=== PATIENT | female | born 1945 | race African-American/Black ===

== ENCOUNTER → 2019-07-01 | Outpatient (CLI) | payer MEDICARE ==
--- NOTE | 2019-07-09 14:19 | RAD ---
DATE: July 01, 2019 EXAM: MAMMO PATEL SCREENING BILATERAL HISTORY: Screening study. COMPARISON: [facility] June 17, 2018. This study was interpreted with the benefit of Computerized Aided Detection (CAD). 2-D digital mammographic views of both breasts were performed in the CC and MLO projections. 3-D digital tomosynthesis images of both breasts were performed in the CC and MLO projections and reviewed on a computer workstation. FINDINGS: Breast Density: HETERO The breast parenchyma is heterogenously dense, which could reduce sensitivity of mammography. Breast parenchyma level C.. There is an enlarging nodule within the upper outer quadrant of the right breast nodule measuring 7 mm. This is best seen on patel CC image 14 and MLO patel image 15. It is located 4 cm from the nipple. Left breast nodularity is stable. Biopsy clip is seen within the medial aspect left breast at nipple level. No spiculated lesion or architectural distortion or clustering of pleomorphic microcalcifications are evident on either side otherwise. IMPRESSION: Enlarging nodule right breast. Recommend right breast sonography. BI-RADS CATEGORY: 0 INCOMPLETE: NEEDS ADDITIONAL IMAGING EVALUATION AND/OR PRIOR MAMMOGRAMS FOR COMPARISON. RECOMMENDED FOLLOW-UP: ADD ADDITIONAL IMAGING PQRS compliance statement: Patient information was entered into a reminder system with a target due date now for the next ultrasound. Mammography is a sensitive method for finding small breast cancers, but it does not detect them all and is not a substitute for careful clinical examination. A negative mammogram does not negate a clinically suspicious finding and should not result in delay in biopsying a clinically suspicious abnormality. "Our facility is accredited by the [employer] Mammography [employer]." The patient's breast density may affect the ability of mammography to detect breast cancer. There are 4 categories of breast density, A, B, C and D. Breast density A means that most of the breast tissue is replaced with adipose tissue and therefore is not dense. Breast density B means that the breast tissue is mildly dense and scattered. Breast density C means that the breast tissue is heterogeneously dense. Breast density D means that the breast tissue is very dense. Breast densities especially C and D may decrease the sensitivity of mammography to detect breast cancer. Therefore, the patient may benefit from 3-D breast mammography (3D breast tomography) as a part of their screening mammogram. Insurance may or may not pay for this additional imaging. The patient's breast density based on today's mammogram is category C.
== END | disposition home or self-care (01) ==
LOC: MAMMO 08:38
PROVIDERS: ATTEND Physician Assistant
DX: Z12.31 Encounter for screening mammogram for malignant neoplasm of breast (principal); N63.11 Unspecified lump in the right breast, upper outer quadrant
CPT/HCPCS: 77063; 77067

== ENCOUNTER → 2019-07-22 | Outpatient (CLI) | payer MEDICARE ==
[~2019-07-22] MED LIST: ASPI-630 PO; ATEN50TA PO; HYDR50TA6 PO; SPIR25TA5 PO
--- NOTE | 2019-07-22 13:29 | RAD ---
Examination: BREAST RIGHT History: Abnormal mammogram Comparison/Correlation: Screening mammogram 05/01/2019 Findings: Right upper-outer breast ultrasound was performed. Septated cystic structure measuring 0.7 cm x 0.6 cm x 0.4 centimeter. No flow evident within it. This appears to correspond with the mammographic finding. Impression: BI-RADS Category 3-probably benign. Six-month follow-up right unilateral mammogram and six-month follow-up ultrasound exam recommended to assess stability. Electronically signed by: Dylon Thapa MD (07/22/2019 1:27 PM) [id number]
== END | disposition home or self-care (01) ==
LOC: US 12:46
PROVIDERS: ATTEND Family Medicine
DX: N60.11 Diffuse cystic mastopathy of right breast (principal)
CPT/HCPCS: 76641

== ENCOUNTER → 2019-08-05 | Day surgery (SDC) | payer MEDICARE ==
[~2019-08-05] MED LIST changes: +IV RINGERS SOLUTION,LACTATED 1,000 ML IV SCH; +PROPOFOL 20 ML IV ONE
[2019-08-05 13:58] VITALS: BP 132/64
== END | disposition home or self-care (01) ==
LOC: SURG 11:57
PROVIDERS: ATTEND Internal Medicine Gastroenterology
DX: Z12.11 Encounter for screening for malignant neoplasm of colon (principal); K63.89 Other specified diseases of intestine; M19.90 Unspecified osteoarthritis, unspecified site; N18.3 Chronic kidney disease, stage 3 (moderate); I12.9 Hypertensive chronic kidney disease with stage 1 through stage 4 chronic kidney disease, or unspecified chronic kidney disease; Z86.010 Personal history of colon polyps; Z90.710 Acquired absence of both cervix and uterus; Z88.6 Allergy status to analgesic agent; Z88.1 Allergy status to other antibiotic agents; Z79.82 Long term (current) use of aspirin; Z79.899 Other long term (current) drug therapy; Z88.5 Allergy status to narcotic agent; Z87.39 Personal history of other diseases of the musculoskeletal system and connective tissue; Z98.890 Other specified postprocedural states
CPT/HCPCS: G0105; J2704; 45378

== ENCOUNTER → 2020-07-27 | Outpatient (CLI) | payer MEDICARE ==
[2019-08-05 13:58] VITALS: BP 132/64
[~2020-07-27] MED LIST changes: -HYDR50TA6 PO; +HYDR50TA9 PO; -IV RINGERS SOLUTION,LACTATED 1,000 ML IV SCH; -PROPOFOL 20 ML IV ONE
--- NOTE | 2020-07-27 14:56 | RAD ---
EXAM: Bilateral digital diagnostic mammogram with tomosynthesis; right breast sonogram. HISTORY: 75-year-old female presents for follow-up evaluation of a suspected benign cystic lesion wit hin the right breast demonstrated on a sonogram performed 07/22/2019. The patient did not return at t he 6 month recommended follow up interval and is not due for bilateral mammography. TECHNIQUE: Full-field digital craniocaudal and mediolateral oblique 2D and 3D tomosynthesis images of both breasts are obtained for evaluation. Computer aided detection was applied. Sonographic imaging of the right breast targeted to the site of prior findings was performed COMPARISON: 07/22/2019 and 07/01/2019 BREAST PARENCHYMAL DENSITY: Level B - Scattered fibroglandular densities. FINDINGS: There is no new suspicious mass, microcalcification or region of architectural distortion. There are multiple scattered benign-appearing areas of nodularity throughout both breasts. There are stable areas of asymmetry when allowing for differences in patient positioning. There are few benign calcifications. Sonographic imaging of the right breast demonstrates a stable 7 mm lobulated cystic lesion with inter nal echoes and posterior through transmission at the 9:30 position 4 cm from the nipple, the appearan ce of which favors a cluster of cysts. This demonstrates no suspicious solid lesion component. There are benign axillary lymph nodes. IMPRESSION: 1. Stable benign-appearing cystic lesion measuring 7 mm at the 9:30 position of the right breast 4 cm from the nipple, there is which favors a cluster of cysts. 2. No new suspicious mammographic or sonographic finding. 3. BI-RADS Category 2: Benign finding(s). RECOMMENDATION: Annual mammography is recommended. If your mammogram demonstrates that you have dense breast tissue, which could hide abnormalities, and if you have other risk factors for breast cancer that have been identified, you might benefit from s upplemental screening tests that may be suggested by your ordering physician. Dense breast tissue, i n and of itself, is a relatively common condition. This information is not provided to cause undue c oncern, but rather to raise your awareness and to promote discussion with your physician regarding th e presence of other risk factors, in addition to dense breast tissue. A report of your mammography re sults will be sent to you and your physician. You should contact your physician if you have any ques tions or concerns regarding this report. Mammography is a sensitive method for finding small breast cancers, but it does not detect them all a nd is not a substitute for careful clinical examination. A negative mammogram does not negate a clin ically suspicious finding and should not result in delay in biopsying a clinically suspicious abnorma lity. PQRS compliance statement - Patient information was entered into a reminder system with a target due date for the next mammogram. "Our facility is accredited by the [employer] Mammography [employer]." Electronically signed by: Jeanine Winter MD (07/27/2020 2:54 PM) [id number]
== END ==
LOC: MAMMO 13:49
PROVIDERS: ATTEND Family Medicine
DX: R92.1 Mammographic calcification found on diagnostic imaging of breast (principal); N60.01 Solitary cyst of right breast; N63.10 Unspecified lump in the right breast, unspecified quadrant
CPT/HCPCS: 76641; 77066; G0279; 77062

== ENCOUNTER → 2021-05-30 | Outpatient (CLI) | payer MEDICARE ==
[2019-08-05 13:58] VITALS: BP 132/64
[2021-05-30 10:24] LABS: BASO % 1 % (0-3); EOS # 0.1 x10^3/uL (0.0-0.7); EOS % 2 % (0-3); HEMATOCRIT 38.9 % (36.0-47.0); HEMOGLOBIN 13.1 g/dL (12.0-15.5); LYMPH # 1.7 x10^3/uL (1.0-4.8); LYMPH % 34 % (24-48); MEAN CORPUSCULAR HEMOGLOBIN 33 pg (25-35); MEAN CORPUSCULAR HGB CONC 34 g/dL (31-37); MEAN CORPUSCULAR VOLUME 99 fL (79-100); MONO # 0.6 x10^3/uL (0.0-1.1); MONO % 12 % (0-9); NEUT # 2.5 x10^3uL (1.8-7.7); NEUT % 51 % (31-73); PLATELET COUNT 190 x10^3/uL (140-400); RED BLOOD COUNT 3.92 x10^6/uL (3.50-5.40); RED CELL DISTRIBUTION WIDTH 13.5 % (11.5-14.5); WHITE BLOOD COUNT 4.9 x10^3/uL (4.0-11.0)
[2021-05-30 10:57] LABS: BACTERIA,URINE 0 /HPF (0-FEW); BILIRUBIN,URINE NEG (NEG); CLARITY,URINE CLEAR; COLOR,URINE YELLOW; GLUCOSE,URINE NEG (NEG); NITRITE,URINE NEG (NEG); RBC,URINE OCC /HPF (0-2); SQUAMOUS EPITHELIAL CELL,UR OCC /LPF; UROBILINOGEN,URINE 0.2 mg/dL (0.2 mg/dL); WBC,URINE 0 /HPF (0-4)
[2021-05-30 15:37] LABS: ALBUMIN 3.4 g/dL (3.4-5.0); CALCIUM 9.7 mg/dL (8.5-10.1); CREATININE 1.3 mg/dL (0.6-1.0); GFR 47.9; MAGNESIUM 1.5 mg/dL (1.8-2.4); PHOSPHORUS 2.8 mg/dL (2.6-4.7); POTASSIUM 4.5 mmol/L (3.5-5.1); URIC ACID 6.8 mg/dL (2.6-6.0)
[2021-05-30 23:12] LABS: CALCIUM PTH 10.3 mg/dL (8.7-10.3); CREATININE PTH 1.23 mg/dL (0.57-1.00); PTH INTACT 49 pg/mL (15-65)
== END ==
LOC: LAB 09:18
PROVIDERS: ATTEND Nurse Practitioner Family
DX: I12.9 Hypertensive chronic kidney disease with stage 1 through stage 4 chronic kidney disease, or unspecified chronic kidney disease (principal); N18.2 Chronic kidney disease, stage 2 (mild); E83.52 Hypercalcemia; Z68.31 Body mass index [BMI] 31.0-31.9, adult
CPT/HCPCS: 36415; 80069; 81001; 82306; 83735; 83970; 84550; 85025

== ENCOUNTER → 2021-06-21 | Outpatient (CLI) | payer MEDICARE ==
[2019-08-05 13:58] VITALS: BP 132/64
[2021-06-21 12:50] LABS: ALBUMIN 3.3 g/dL (3.4-5.0); CALCIUM 9.6 mg/dL (8.5-10.1); CREATININE 1.2 mg/dL (0.6-1.0); GFR 52.6; PHOSPHORUS 2.7 mg/dL (2.6-4.7); POTASSIUM 3.9 mmol/L (3.5-5.1)
[2021-06-22 16:48] LABS: CREATININE,RANDOM URINE 47.6 mg/dL (Not Establ.)
== END ==
LOC: LAB 10:48
PROVIDERS: ATTEND Nurse Practitioner Adult Health
DX: E83.52 Hypercalcemia (principal); I12.9 Hypertensive chronic kidney disease with stage 1 through stage 4 chronic kidney disease, or unspecified chronic kidney disease; N18.2 Chronic kidney disease, stage 2 (mild); Z68.31 Body mass index [BMI] 31.0-31.9, adult
CPT/HCPCS: 36415; 80069; 82570; 84156